=== PATIENT | male | born 1965 | race Caucasian/White ===

== ENCOUNTER 2020-09-19 23:57 | Inpatient (IN) | payer OTHER ==
[~2020-09-19] VITALS: Ht 152.4 cm; Wt 119.0 kg
[2020-09-20 01:25] LABS: Basophils # (auto) 0 10 ^3/uL (0-0.2); Basophils % (auto) 0.7 % (0.0-2.0); Eosinophils # (auto) 0 10 ^3/uL (0-0.8); Eosinophils % (auto) 0.3 % (0.0-7.0); Hemoglobin 13.8 g/dL (13.5-17.5); Lymphocytes # (auto) 0.5 10 ^3/uL (0.4-5.4); Lymphocytes % (auto) 19.8 % (10.0-50.0); Mean Corpuscular Hemoglobin 32.4 pg (28.0-32.0); Mean Corpuscular Hgb Conc. 34.4 g/dL (32.0-36.0); Mean Corpuscular Volume 94.2 fL (80.0-100.0); Monocytes # (auto) 0.1 10 ^3/uL (0-1.3); Monocytes % (auto) 5.5 % (0.0-12.0); Neutrophils # (auto) 1.9 10 ^3/uL (1.6-8.6); Neutrophils % (auto) 73.7 % (37.0-80.0); Nucleated Red Blood Cells % 0.5 %; Red Blood Cells 4.24 10^6/uL (4.5-5.90); Red Cell Distribution Width 15.5 % (11.8-14.3); White Blood Cell 2.6 10^3/uL (4.4-10.8)
[2020-09-20 01:35] LABS: INR 1.01 (0.9-1.15); Partial Thromboplastin Time 30.8 sec (23.0-31.2)
[2020-09-20 01:42] LABS: Albumin 2.4 g/dL (3.4-5.0); Calcium 7.7 mg/dL (8.5-10.1)
[2020-09-20 01:45] LABS: Bilirubin, Total 0.3 mg/dL (0.2-1.0); Total Protein 7.3 g/dL (6.4-8.2)
[2020-09-20] MEDS ORDERED: levoFLOXacin 750MG 150 ML IV ONE (10:30)
[2020-09-20] MEDS ORDERED: NITROGLYCERIN 0.4 MG SL TAB SL PRN (11:45)
[2020-09-20] MEDS ORDERED: MORPHINE SULFATE INJECTION 2 MG/ML SYRG IV PRN ×2 (11:45)
[2020-09-20] MEDS ORDERED: ONDANSETRON HCL 4 MG/2 ML VIAL IV PRN (11:45)
[2020-09-20] MEDS ORDERED: ALBUTEROL SULF HFA 90MCG INH 200DOSE IN PRN (11:45)
[2020-09-20] MEDS ORDERED: ACETAMINOPHEN 500 MG TAB PO PRN (11:45)
[2020-09-20] MEDS ORDERED: HYDROcodone-ACET 5/325MG TAB PO PRN (11:45)
[2020-09-20] MEDS ORDERED: SODIUM CHLORIDE 0.9% 1,000 ML IV ONE (12:30)
[2020-09-21 06:08] LABS: Basophils # (auto) 0 10 ^3/uL (0-0.2); Basophils % (auto) 0.5 % (0.0-2.0); Eosinophils # (auto) 0 10 ^3/uL (0-0.8); Eosinophils % (auto) 0.3 % (0.0-7.0); Hematocrit 39.1 % (41.0-53.0); Hemoglobin 13.5 g/dL (13.5-17.5); Lymphocytes # (auto) 0.4 10 ^3/uL (0.4-5.4); Lymphocytes % (auto) 15.1 % (10.0-50.0); Mean Corpuscular Hemoglobin 32.8 pg (28.0-32.0); Mean Corpuscular Hgb Conc. 34.6 g/dL (32.0-36.0); Mean Corpuscular Volume 94.8 fL (80.0-100.0); Monocytes # (auto) 0.2 10 ^3/uL (0-1.3); Monocytes % (auto) 6.3 % (0.0-12.0); Neutrophils # (auto) 2.3 10 ^3/uL (1.6-8.6); Neutrophils % (auto) 77.8 % (37.0-80.0); Nucleated Red Blood Cells % 0.2 %; Red Blood Cells 4.12 10^6/uL (4.5-5.90); Red Cell Distribution Width 15.8 % (11.8-14.3); White Blood Cell 2.9 10^3/uL (4.4-10.8)
[2020-09-21 06:24] LABS: Albumin 2.1 g/dL (3.4-5.0); Calcium 8.2 mg/dL (8.5-10.1); Potassium 4.1 mmol/L (3.5-5.1)
[2020-09-21 06:27] LABS: BUN/Creatinine Ratio 14.3; Bilirubin, Total 0.3 mg/dL (0.2-1.0)
[2020-09-21] MEDS: BUDESONIDE (INHALATION) 180 MCG IH IN SCH ×2 (07:46→13:29)
[2020-09-21] MEDS: cefTRIAXone 1GM/50ML D5W 50 ML IV SCH (09:00)
[2020-09-21] MEDS: CHOLECALCIFEROL (VITD3) 2,000 UNIT CAP/TAB PO SCH (10:00)
[2020-09-21] MEDS: ZINC SULFATE 220mg CAP or TAB PO SCH (10:00)
[2020-09-21] MEDS: ASCORBIC ACID 1,000 MG TAB PO SCH (10:00)
[2020-09-21] MEDS ORDERED: ENOXAPARIN SOD 40 MG/0.4 ML SYRINGE SC SCH (10:00)
[2020-09-21] MEDS: DexAMETHasone SOD PHOS 10MG/1ML VIAL INJ IV SCH (11:37)
[2020-09-21] MEDS: AZITHROMYCIN 500MG/ 250ML 250 ML IV SCH (13:35)
[2020-09-21 14:15] LABS: Urine Bacteria NONE SEEN /hpf (None Seen); Urine Blood 2+ /uL (Negative); Urine Specific Gravity 1.016 (1.001-1.035); Urine WBC 2 /hpf (0 - 3)
[2020-09-21 14:24] LABS: Creatinine, Urine 146 mg/dL (30.0-125.0); Sodium Urine 25 mmol/L (40-220)
[2020-09-21] MEDS ORDERED: REMDESIVIR PER PHARMACY 0 ML IV SCH (18:00)
[2020-09-21] MEDS ORDERED: SODIUM CHLORIDE 0.9% 1,000 ML IV ONE (18:15)
[2020-09-21] MEDS ORDERED: REMDESIVIR 200 MG in NS 210ml LOADING DOSE ADULT IV ONE (18:30)
[2020-09-21] MEDS: DOCUSATE SOD 100 MG CAP PO SCH (22:00)
[2020-09-21] MEDS: ENOXAPARIN SOD 40 MG/0.4 ML SYRINGE SC SCH (22:00)
[2020-09-22 05:58] LABS: Hemoglobin 12.9 g/dL (13.5-17.5); Mean Corpuscular Hemoglobin 32.3 pg (28.0-32.0); Mean Corpuscular Hgb Conc. 33.9 g/dL (32.0-36.0); Mean Corpuscular Volume 95.4 fL (80.0-100.0); Red Blood Cells 3.98 10^6/uL (4.5-5.90); Red Cell Distribution Width 15.8 % (11.8-14.3); White Blood Cell 2.4 10^3/uL (4.4-10.8)
[2020-09-22] MEDS: ALBUTEROL SULF HFA 90MCG INH 200DOSE IN SCH ×2 (06:00→14:09)
[2020-09-22 06:11] LABS: Basophils % (manual) 0 (0.0-2.0); Blast Cells 0; Eosinophils % (manual) 0 (0-7); Myelocytes % 0; Promyelocytes % 0; Reactive Lymphocytes 0
[2020-09-22 06:17] LABS: INR 1.06 (0.9-1.15); Partial Thromboplastin Time 31.4 sec (23.0-31.2)
[2020-09-22 06:20] LABS: Potassium 4.3 mmol/L (3.5-5.1)
[2020-09-22 06:33] LABS: Albumin 1.9 g/dL (3.4-5.0); BUN/Creatinine Ratio 15.8; Bilirubin, Total 0.3 mg/dL (0.2-1.0); CRP High Sensitivity 10.9 mg/dL (< 0.3); Calcium 7.9 mg/dL (8.5-10.1); Magnesium 2.7 mg/dL (1.6-2.6); Total Protein 6.5 g/dL (6.4-8.2)
[2020-09-22 07:39] LABS: Band Neutrophils % (manual) 3; Lymphocytes % (manual) 8 (10.0-50.0); Metamyelocytes % 2; Monocytes % (manual) 10 (0-12)
[2020-09-22] MEDS: BUDESONIDE (INHALATION) 180 MCG IH IN SCH (08:23)
[2020-09-22] MEDS: cefTRIAXone 1GM/50ML D5W 50 ML IV SCH (08:26)
[2020-09-22] MEDS: DexAMETHasone SOD PHOS 10MG/1ML VIAL INJ IV SCH (09:00)
[2020-09-22] MEDS: ZINC SULFATE 220mg CAP or TAB PO SCH (09:01)
[2020-09-22] MEDS: CHOLECALCIFEROL (VITD3) 2,000 UNIT CAP/TAB PO SCH (09:01)
[2020-09-22] MEDS: DOCUSATE SOD 100 MG CAP PO SCH ×3 (09:01→22:01)
[2020-09-22] MEDS: ASCORBIC ACID 1,000 MG TAB PO SCH (09:01)
[2020-09-22] MEDS: ENOXAPARIN SOD 40 MG/0.4 ML SYRINGE SC SCH ×2 (09:47→22:01)
[2020-09-22] MEDS: AZITHROMYCIN 500MG/ 250ML 250 ML IV SCH (09:47)
[2020-09-22] MEDS: REMDESIVIR 100 MG in SODIUM CHL 0.9% 250 ML IV SCH (15:59)
[2020-09-22 16:00] VITALS: BP 115/65
[2020-09-22 18:06] VITALS: BP 115/65
[2020-09-22] MEDS ORDERED: COLCPOW2 PO (18:55)
[2020-09-22] MEDS: BUDESONIDE (INHALATION) 0.5 MG/2 ML NEB NEB SCH (20:37)
[2020-09-23] VITALS: BP 143/76
[2020-09-23] MEDS: BUDESONIDE (INHALATION) 0.5 MG/2 ML NEB NEB SCH ×2 (06:43→21:55)
[2020-09-23 07:02] LABS: Basophils # (auto) 0 10 ^3/uL (0-0.2); Basophils % (auto) 0.6 % (0.0-2.0); Eosinophils # (auto) 0 10 ^3/uL (0-0.8); Hematocrit 39.6 % (41.0-53.0); Hemoglobin 13.3 g/dL (13.5-17.5); Lymphocytes # (auto) 0.3 10 ^3/uL (0.4-5.4); Lymphocytes % (auto) 8.8 % (10.0-50.0); Mean Corpuscular Hemoglobin 32.2 pg (28.0-32.0); Mean Corpuscular Hgb Conc. 33.7 g/dL (32.0-36.0); Mean Corpuscular Volume 95.5 fL (80.0-100.0); Monocytes # (auto) 0.3 10 ^3/uL (0-1.3); Monocytes % (auto) 9.3 % (0.0-12.0); Neutrophils # (auto) 2.5 10 ^3/uL (1.6-8.6); Neutrophils % (auto) 81.3 % (37.0-80.0); Nucleated Red Blood Cells % 0.2 %; Red Blood Cells 4.14 10^6/uL (4.5-5.90); Red Cell Distribution Width 15.7 % (11.8-14.3); White Blood Cell 3.1 10^3/uL (4.4-10.8)
[2020-09-23] MEDS: ALBUTEROL SULF 2.5 MG/0.5ML(0.5%) NEB SOLN NEB PRN (07:58)
[2020-09-23 08:00] VITALS: BP 114/62
[2020-09-23 08:49] LABS: Potassium 4.3 mmol/L (3.5-5.1)
[2020-09-23 09:30] LABS: Albumin 1.9 g/dL (3.4-5.0); Bilirubin, Total 0.3 mg/dL (0.2-1.0); CRP High Sensitivity 5.47 mg/dL (< 0.3); Total Protein 6.5 g/dL (6.4-8.2)
[2020-09-23] MEDS: ASCORBIC ACID 1,000 MG TAB PO SCH (10:00)
[2020-09-23] MEDS: DOCUSATE SOD 100 MG CAP PO SCH ×2 (10:00→21:55)
[2020-09-23] MEDS: ZINC SULFATE 220mg CAP or TAB PO SCH (10:00)
[2020-09-23] MEDS: CHOLECALCIFEROL (VITD3) 2,000 UNIT CAP/TAB PO SCH (10:00)
[2020-09-23] MEDS: DexAMETHasone SOD PHOS 10MG/1ML VIAL INJ IV SCH (11:16)
[2020-09-23] MEDS: cefTRIAXone 1GM/50ML D5W 50 ML IV SCH (11:19)
[2020-09-23] MEDS: AZITHROMYCIN 500MG/ 250ML 250 ML IV SCH (11:19)
[2020-09-23] MEDS: ENOXAPARIN SOD 40 MG/0.4 ML SYRINGE SC SCH ×2 (11:21→21:56)
[2020-09-23 16:00] VITALS: BP 114/68
[2020-09-23] MEDS: REMDESIVIR 100 MG in SODIUM CHL 0.9% 250 ML IV SCH (17:29)
[2020-09-23] MEDS ORDERED: DOXY-338 PO (19:53)
[2020-09-23] MEDS ORDERED: ALB5IS NEB (19:53)
[2020-09-23] MEDS ORDERED: DEXA6TAB6 PO (19:53)
[2020-09-24] VITALS: BP 90/51
[2020-09-24 06:23] LABS: Hematocrit 39.5 % (41.0-53.0); Hemoglobin 13.4 g/dL (13.5-17.5); Mean Corpuscular Hemoglobin 32.2 pg (28.0-32.0); Mean Corpuscular Volume 94.8 fL (80.0-100.0); Red Blood Cells 4.16 10^6/uL (4.5-5.90); Red Cell Distribution Width 15.6 % (11.8-14.3); White Blood Cell 3.7 10^3/uL (4.4-10.8)
[2020-09-24] MEDS: BUDESONIDE (INHALATION) 0.5 MG/2 ML NEB NEB SCH ×2 (06:34→21:12)
[2020-09-24 07:13] LABS: BUN/Creatinine Ratio 20.5; Calcium 8.3 mg/dL (8.5-10.1)
[2020-09-24 07:17] LABS: Bilirubin, Total 0.4 mg/dL (0.2-1.0); Total Protein 6.6 g/dL (6.4-8.2)
[2020-09-24] MEDS: ALBUTEROL SULF 2.5 MG/0.5ML(0.5%) NEB SOLN NEB PRN ×2 (07:18→21:12)
[2020-09-24 07:20] LABS: Basophils % (manual) 0 (0.0-2.0); Blast Cells 0; Eosinophils % (manual) 0 (0-7); Myelocytes % 0; Promyelocytes % 0; Reactive Lymphocytes 0
[2020-09-24 08:00] VITALS: BP 113/55
[2020-09-24] MEDS: DexAMETHasone SOD PHOS 10MG/1ML VIAL INJ IV SCH (09:26)
[2020-09-24] MEDS: cefTRIAXone 1GM/50ML D5W 50 ML IV SCH (09:27)
[2020-09-24] MEDS: ENOXAPARIN SOD 40 MG/0.4 ML SYRINGE SC SCH (09:27)
[2020-09-24] MEDS: ZINC SULFATE 220mg CAP or TAB PO SCH (09:33)
[2020-09-24] MEDS: ASCORBIC ACID 1,000 MG TAB PO SCH (09:33)
[2020-09-24] MEDS: DOCUSATE SOD 100 MG CAP PO SCH (09:33)
[2020-09-24] MEDS: CHOLECALCIFEROL (VITD3) 2,000 UNIT CAP/TAB PO SCH (09:33)
[2020-09-24 09:38] LABS: Band Neutrophils % (manual) 18; Lymphocytes % (manual) 8 (10.0-50.0); Metamyelocytes % 1; Monocytes % (manual) 3 (0-12)
[2020-09-24] MEDS: AZITHROMYCIN 500MG/ 250ML 250 ML IV SCH (10:00)
[2020-09-24] MEDS: D5W 5% 1,000 ML IV SCH ×2 (10:30→19:03)
[2020-09-24 14:10] VITALS: BP 113/55
[2020-09-24] MEDS: REMDESIVIR 100 MG in SODIUM CHL 0.9% 250 ML IV SCH (18:19)
[2020-09-24] MEDS ORDERED: SOD CHL 0.45% 1,000 ML IV SCH (19:00)
[2020-09-25] VITALS: BP 115/77
[2020-09-25] MEDS: D5W 5% 1,000 ML IV SCH ×2 (02:30→09:11)
[2020-09-25 07:17] LABS: Hemoglobin 13.1 g/dL (13.5-17.5); Mean Corpuscular Hemoglobin 32.7 pg (28.0-32.0); Mean Corpuscular Hgb Conc. 34.4 g/dL (32.0-36.0); Mean Corpuscular Volume 95.2 fL (80.0-100.0); Red Blood Cells 3.99 10^6/uL (4.5-5.90); Red Cell Distribution Width 15.7 % (11.8-14.3); White Blood Cell 4.1 10^3/uL (4.4-10.8)
[2020-09-25 07:35] LABS: Potassium 3.6 mmol/L (3.5-5.1)
[2020-09-25 07:38] LABS: Basophils % (manual) 0 (0.0-2.0); Blast Cells 0; Eosinophils % (manual) 0 (0-7); Metamyelocytes % 0; Myelocytes % 0; Promyelocytes % 0; Reactive Lymphocytes 0
[2020-09-25 07:49] LABS: BUN/Creatinine Ratio 23.3; CRP High Sensitivity 1.88 mg/dL (< 0.3)
[2020-09-25 08:00] VITALS: BP 110/64
[2020-09-25] MEDS: AZITHROMYCIN 500MG/ 250ML 250 ML IV SCH (09:09)
[2020-09-25] MEDS: ZINC SULFATE 220mg CAP or TAB PO SCH (09:09)
[2020-09-25] MEDS: cefTRIAXone 1GM/50ML D5W 50 ML IV SCH (09:09)
[2020-09-25] MEDS: BUDESONIDE (INHALATION) 0.5 MG/2 ML NEB NEB SCH ×2 (09:09→19:05)
[2020-09-25] MEDS: DexAMETHasone SOD PHOS 10MG/1ML VIAL INJ IV SCH (09:09)
[2020-09-25] MEDS: ASCORBIC ACID 1,000 MG TAB PO SCH (09:09)
[2020-09-25] MEDS: ENOXAPARIN SOD 40 MG/0.4 ML SYRINGE SC SCH (09:10)
[2020-09-25] MEDS: CHOLECALCIFEROL (VITD3) 2,000 UNIT CAP/TAB PO SCH (09:10)
[2020-09-25 09:36] LABS: Band Neutrophils % (manual) 14; Lymphocytes % (manual) 11 (10.0-50.0); Monocytes % (manual) 4 (0-12)
[2020-09-25] MEDS: REMDESIVIR 100 MG in SODIUM CHL 0.9% 250 ML IV SCH (16:13)
[2020-09-25 16:16] VITALS: BP 120/61
[2020-09-25] MEDS: D5W/SOD CHL 0.45% 1,000 ML IV SCH (17:15)
[2020-09-25] MEDS: FREE WATER PO SCH (17:45)
[2020-09-26] VITALS: BP 120/74
[2020-09-26] MEDS: D5W/SOD CHL 0.45% 1,000 ML IV SCH ×2 (03:18→12:52)
[2020-09-26] MEDS: FREE WATER PO SCH ×3 (05:43→11:26)
[2020-09-26 05:45] LABS: Hematocrit 38.7 % (41.0-53.0); Hemoglobin 13.1 g/dL (13.5-17.5); Mean Corpuscular Hemoglobin 32.2 pg (28.0-32.0); Mean Corpuscular Hgb Conc. 33.8 g/dL (32.0-36.0); Mean Corpuscular Volume 95.2 fL (80.0-100.0); Red Blood Cells 4.06 10^6/uL (4.5-5.90); Red Cell Distribution Width 15.6 % (11.8-14.3); White Blood Cell 4.3 10^3/uL (4.4-10.8)
[2020-09-26 05:55] LABS: Potassium 3.7 mmol/L (3.5-5.1)
[2020-09-26 06:06] LABS: Basophils % (manual) 0 (0.0-2.0); Blast Cells 0; Eosinophils % (manual) 0 (0-7); Metamyelocytes % 0; Promyelocytes % 0; Reactive Lymphocytes 0
[2020-09-26 06:11] LABS: BUN/Creatinine Ratio 22.6; CRP High Sensitivity 1.23 mg/dL (< 0.3); Calcium 7.7 mg/dL (8.5-10.1)
[2020-09-26 08:00] VITALS: BP 109/68
[2020-09-26 08:46] LABS: Band Neutrophils % (manual) 3; Lymphocytes % (manual) 14 (10.0-50.0); Monocytes % (manual) 12 (0-12); Myelocytes % 1
[2020-09-26] MEDS: cefTRIAXone 1GM/50ML D5W 50 ML IV SCH (09:09)
[2020-09-26] MEDS: DexAMETHasone SOD PHOS 10MG/1ML VIAL INJ IV SCH (09:09)
[2020-09-26] MEDS: AZITHROMYCIN 500MG/ 250ML 250 ML IV SCH (09:10)
[2020-09-26] MEDS: CHOLECALCIFEROL (VITD3) 2,000 UNIT CAP/TAB PO SCH (09:10)
[2020-09-26] MEDS: ASCORBIC ACID 1,000 MG TAB PO SCH (09:10)
[2020-09-26] MEDS: ZINC SULFATE 220mg CAP or TAB PO SCH (09:10)
[2020-09-26] MEDS: ENOXAPARIN SOD 40 MG/0.4 ML SYRINGE SC SCH (09:11)
[2020-09-26] MEDS: BUDESONIDE (INHALATION) 0.5 MG/2 ML NEB NEB SCH ×2 (09:11→17:20)
[2020-09-26] MEDS ORDERED: D5W 5% 1,000 ML IV SCH (14:45)
[2020-09-26 16:00] VITALS: BP 110/67
[2020-09-26] MEDS: ALBUTEROL SULF 2.5 MG/0.5ML(0.5%) NEB SOLN NEB PRN (17:20)
[2020-09-26 18:54] LABS: BUN/Creatinine Ratio 22.5; Calcium 7.6 mg/dL (8.5-10.1); Potassium 4.3 mmol/L (3.5-5.1)
[2020-09-27] VITALS: BP 113/59
[2020-09-27] MEDS: D5W 5% 1,000 ML IV SCH ×3 (02:30→18:30)
[2020-09-27 07:01] LABS: Hematocrit 40.4 % (41.0-53.0); Hemoglobin 13.5 g/dL (13.5-17.5); Mean Corpuscular Hemoglobin 31.9 pg (28.0-32.0); Mean Corpuscular Hgb Conc. 33.5 g/dL (32.0-36.0); Mean Corpuscular Volume 95.2 fL (80.0-100.0); Red Blood Cells 4.24 10^6/uL (4.5-5.90); Red Cell Distribution Width 15.4 % (11.8-14.3); White Blood Cell 5.5 10^3/uL (4.4-10.8)
[2020-09-27 07:10] LABS: Basophils % (manual) 0 (0.0-2.0); Blast Cells 0; Eosinophils % (manual) 0 (0-7); Metamyelocytes % 0; Myelocytes % 0; Promyelocytes % 0; Reactive Lymphocytes 0
[2020-09-27 07:20] LABS: Potassium 3.7 mmol/L (3.5-5.1)
[2020-09-27 07:22] LABS: BUN/Creatinine Ratio 23.6; CRP High Sensitivity 0.72 mg/dL (< 0.3)
[2020-09-27 08:00] VITALS: BP 105/62
[2020-09-27] MEDS: ASCORBIC ACID 1,000 MG TAB PO SCH (10:00)
[2020-09-27] MEDS: BUDESONIDE (INHALATION) 0.5 MG/2 ML NEB NEB SCH ×2 (10:00→19:57)
[2020-09-27] MEDS: ZINC SULFATE 220mg CAP or TAB PO SCH (10:00)
[2020-09-27] MEDS: CHOLECALCIFEROL (VITD3) 2,000 UNIT CAP/TAB PO SCH (10:00)
[2020-09-27] MEDS: cefTRIAXone 1GM/50ML D5W 50 ML IV SCH (10:38)
[2020-09-27] MEDS: ENOXAPARIN SOD 40 MG/0.4 ML SYRINGE SC SCH (10:38)
[2020-09-27] MEDS: DexAMETHasone SOD PHOS 10MG/1ML VIAL INJ IV SCH (10:38)
[2020-09-27] MEDS: AZITHROMYCIN 500MG/ 250ML 250 ML IV SCH (10:57)
[2020-09-27 13:11] LABS: Band Neutrophils % (manual) 6; Lymphocytes % (manual) 14 (10.0-50.0); Monocytes % (manual) 15 (0-12)
[2020-09-27 16:00] VITALS: BP 101/60
[2020-09-27] MEDS: ALBUTEROL SULF 2.5 MG/0.5ML(0.5%) NEB SOLN NEB PRN (19:57)
[2020-09-28] VITALS: BP 110/68
[2020-09-28] MEDS: BUDESONIDE (INHALATION) 0.5 MG/2 ML NEB NEB SCH ×2 (06:13→19:13)
[2020-09-28] MEDS: ALBUTEROL SULF 2.5 MG/0.5ML(0.5%) NEB SOLN NEB PRN ×2 (06:13→19:13)
[2020-09-28 07:18] LABS: Basophils # (auto) 0 10 ^3/uL (0-0.2); Basophils % (auto) 0.1 % (0.0-2.0); Eosinophils # (auto) 0 10 ^3/uL (0-0.8); Eosinophils % (auto) 0.2 % (0.0-7.0); Hematocrit 39.1 % (41.0-53.0); Hemoglobin 13.3 g/dL (13.5-17.5); Lymphocytes # (auto) 1.2 10 ^3/uL (0.4-5.4); Lymphocytes % (auto) 18.8 % (10.0-50.0); Mean Corpuscular Hemoglobin 32.3 pg (28.0-32.0); Mean Corpuscular Hgb Conc. 33.9 g/dL (32.0-36.0); Mean Corpuscular Volume 95.2 fL (80.0-100.0); Monocytes # (auto) 0.5 10 ^3/uL (0-1.3); Monocytes % (auto) 7.2 % (0.0-12.0); Neutrophils # (auto) 4.7 10 ^3/uL (1.6-8.6); Neutrophils % (auto) 73.7 % (37.0-80.0); Nucleated Red Blood Cells % 0.1 %; Red Blood Cells 4.11 10^6/uL (4.5-5.90); Red Cell Distribution Width 15.3 % (11.8-14.3); White Blood Cell 6.4 10^3/uL (4.4-10.8)
[2020-09-28] MEDS: D5W 5% 1,000 ML IV SCH ×3 (07:37→18:30)
[2020-09-28 08:00] VITALS: BP 118/76
[2020-09-28 08:00] LABS: Potassium 3.8 mmol/L (3.5-5.1)
[2020-09-28 08:08] LABS: BUN/Creatinine Ratio 24.8; CRP High Sensitivity 0.55 mg/dL (< 0.3); Calcium 7.9 mg/dL (8.5-10.1)
[2020-09-28] MEDS: AZITHROMYCIN 500MG/ 250ML 250 ML IV SCH (09:25)
[2020-09-28] MEDS: ASCORBIC ACID 1,000 MG TAB PO SCH (09:25)
[2020-09-28] MEDS: DexAMETHasone SOD PHOS 10MG/1ML VIAL INJ IV SCH (09:25)
[2020-09-28] MEDS: CHOLECALCIFEROL (VITD3) 2,000 UNIT CAP/TAB PO SCH (09:25)
[2020-09-28] MEDS: ZINC SULFATE 220mg CAP or TAB PO SCH (09:25)
[2020-09-28] MEDS: cefTRIAXone 1GM/50ML D5W 50 ML IV SCH (09:25)
[2020-09-28] MEDS: ENOXAPARIN SOD 40 MG/0.4 ML SYRINGE SC SCH (09:26)
[2020-09-28 16:00] VITALS: BP 98/50
[2020-09-28 19:07] VITALS: BP 98/50
== END 2020-09-28 23:03 | DRG 177 ==
LOC: ER 23:57 → EDBD 23:57 → TELE 09-20 11:49 → TELE-WESTW 09-22 15:45
PROVIDERS: ADMIT Nurse Practitioner Acute Care; ATTEND Internal Medicine
PROC: XW033E5 Introduction of Remdesivir Anti-infective into Peripheral Vein, Percutaneous Approach, New Technology Group 5 (ICD-10-PCS; principal; 2020-09-21)
DX: U07.1 COVID-19 (principal); J96.01 Acute respiratory failure with hypoxia; N17.0 Acute kidney failure with tubular necrosis; G93.41 Metabolic encephalopathy; J12.82 Pneumonia due to coronavirus disease 2019; J15.9 Unspecified bacterial pneumonia; K92.2 Gastrointestinal hemorrhage, unspecified; Z68.42 Body mass index [BMI] 45.0-49.9, adult; E87.0 Hyperosmolality and hypernatremia; G93.1 Anoxic brain damage, not elsewhere classified; I31.3 Pericardial effusion (noninflammatory); E88.09 Other disorders of plasma-protein metabolism, not elsewhere classified; N18.9 Chronic kidney disease, unspecified; D72.819 Decreased white blood cell count, unspecified; E66.01 Morbid (severe) obesity due to excess calories; M10.9 Gout, unspecified; G30.9 Alzheimer's disease, unspecified; G31.9 Degenerative disease of nervous system, unspecified; F02.80 Dementia in other diseases classified elsewhere, unspecified severity, without behavioral disturbance, psychotic disturbance, mood disturbance, and anxiety; I51.7 Cardiomegaly; R31.0 Gross hematuria; Q90.9 Down syndrome, unspecified; Z80.0 Family history of malignant neoplasm of digestive organs; Z82.49 Family history of ischemic heart disease and other diseases of the circulatory system
CPT/HCPCS: 36415; 51702; 70450; 71045; 74176; 76775; 80048; 80053; 81001; 82140; 82570; 82607; 82728; 83615; 83735; 83880; 84300; 84443; 84484; 84550; 85007; 85025; 85027; 85379; 85610; 85730; 86141; 86850; 86900; 86901; 87040; 87426; 87804; 92610; 93005; 93306; 93970; 94640; 96361; 96365; 97110; 97163; 97530; A4565; G0378; J0696; J1100; J1956